=== PATIENT | female | born 1995 | race Caucasian/White ===

== ENCOUNTER 2017-03-15 21:00 | Inpatient (IN) | payer OTHER, SELFPAY ==
[2017-03-15] MEDS ORDERED: BRETHINE 1 MG/ML SQ PRN (21:09)
[2017-03-15] MEDS ORDERED: Cervidil 10 MG VAG SCH (22:00)
[2017-03-15 22:20] LABS: BASOPHIL % 0.2 % (0.0-0.4); Eosinophil % 0.5 % (0.00-5.0); Granulocytes % 71.9 % (36.0-66.0); Lymphocytes % 20.5 % (24.0-44.0); Mean Cell Volume 77.6 fl (78-100); Mean Platelet Volume 10.2 fl (6-9.5); Monocytes % 6.9 % (0.0-12.0); Platelet Count 326 K/mm3 (150-450); Red Blood Count 3.92 M/mm3 (4.1-5.4); Red Cell Distribution Width 15.3 % (11.5-14.0)
[2017-03-15 22:30] LABS: Mean Corpuscular Hemoglobin 24.4 pg (26-32)
[2017-03-15] MEDS ORDERED: TYLENOL EXTRA STRENGTH 500 MG PO PRN (23:57)
[2017-03-16] MEDS ORDERED: PITOCIN 30 UNITS/ LR 500 ML 500 ML IV SCH ×2 (05:30→06:00)
[2017-03-16] MEDS: Lactated Ringers 1,000 ML IV SCH ×2 (05:56→14:22)
[2017-03-16] MEDS ORDERED: XYLOCAINE 1% HCL 20 ML MDV IJ PRN (06:00)
[2017-03-16] MEDS ORDERED: Lactated Ringers 1,000 ML IV ONE (09:39)
[2017-03-16] MEDS ORDERED: Ephedrine Sulfate 50 MG/ML IV PRN (09:39)
[2017-03-16] MEDS ORDERED: OB EPIDURAL NAROPIN/SUFENTANIL IN NACL EPIDURAL PRN (09:39)
[2017-03-16 11:24] VITALS: O2SAT 98
[2017-03-16] MEDS ORDERED: Sensorcaine 0.25% 10 ML IJ ONE ×2 (13:50→14:37)
[2017-03-16] MEDS ORDERED: Dermoplast Spray TP PRN (20:11)
[2017-03-16] MEDS ORDERED: Mylicon 80MG PO PRN (20:12)
[2017-03-16] MEDS ORDERED: TUCKS TP PRN (20:12)
[2017-03-16] MEDS ORDERED: Ambien 10 MG PO PRN (20:12)
[2017-03-16] MEDS ORDERED: Dulcolax 10 MG SUPP PR PRN (20:12)
[2017-03-16] MEDS ORDERED: CORTISONE 1% CREAM TP PRN (20:12)
[2017-03-16] MEDS ORDERED: NORCO 5/325 MG PO PRN (20:12)
[2017-03-16] MEDS ORDERED: Anucort-HC SUPPOSITORY PR PRN (20:12)
[2017-03-16] MEDS ORDERED: Zofran 4 MG/2 ML VIAL IV PRN (20:17)
[2017-03-16] MEDS: MOTRIN 400 MG PO PRN (23:30)
[2017-03-17] MEDS: MOTRIN 400 MG PO PRN ×3 (05:24→22:08)
[2017-03-17] MEDS: Colace 100 MG PO SCH ×3 (05:57→22:08)
[2017-03-17 06:03] LABS: BASOPHIL % 0.2 % (0.0-0.4); Eosinophil % 0.7 % (0.00-5.0); Granulocytes % 71.4 % (36.0-66.0); Lymphocytes % 18.7 % (24.0-44.0); Mean Cell Volume 79.2 fl (78-100); Mean Corpuscular Hemoglobin 24.4 pg (26-32); Mean Platelet Volume 10.7 fl (6-9.5); Platelet Count 237 K/mm3 (150-450); Red Blood Count 3.03 M/mm3 (4.1-5.4); Red Cell Distribution Width 15.3 % (11.5-14.0); White Blood Count 11.7 K/mm3 (4.0-10.5)
[2017-03-17] MEDS: TYLENOL EXTRA STRENGTH 500 MG PO PRN ×2 (08:54→17:34)
[2017-03-17] MEDS ORDERED: Adacel Vial IM ONE (10:00)
[2017-03-17] MEDS ORDERED: FERREX 150 PO SCH (10:00)
[2017-03-17] MEDS: FEOSOL 325 MG PO SCH ×2 (11:35→23:05)
[2017-03-18 05:32] LABS: BASOPHIL % 0.5 % (0.0-0.4); Eosinophil % 2.3 % (0.00-5.0); Granulocytes % 60.1 % (36.0-66.0); Lymphocytes % 28.9 % (24.0-44.0); Mean Cell Volume 80.8 fl (78-100); Mean Corpuscular Hemoglobin 24.3 pg (26-32); Mean Platelet Volume 10.3 fl (6-9.5); Monocytes % 8.2 % (0.0-12.0); Platelet Count 253 K/mm3 (150-450); Red Blood Count 2.91 M/mm3 (4.1-5.4); Red Cell Distribution Width 15.3 % (11.5-14.0); White Blood Count 10.5 K/mm3 (4.0-10.5)
[2017-03-18] MEDS: FEOSOL 325 MG PO SCH ×2 (09:14→19:46)
[2017-03-18] MEDS: MOTRIN 400 MG PO PRN ×2 (09:15→19:45)
[2017-03-18] MEDS: Colace 100 MG PO SCH ×2 (09:15→19:45)
[2017-03-18] MEDS: TYLENOL EXTRA STRENGTH 500 MG PO PRN (13:25)
[2017-03-18 21:31] VITALS: BP 111/52; PULSE 90
== END 2017-03-18 20:50 | disposition home or self-care (01) | DRG 775 ==
LOC: OB 21:00 → UNDOADMOB 21:00 → OBSVTOIN 03-16 07:10
PROVIDERS: ADMIT Family Medicine; ATTEND Family Medicine
PROC: 10D07Z6 Extraction of Products of Conception, Vacuum, Via Natural or Artificial Opening (ICD-10-PCS; principal; 2017-03-16)
DX: O80 Encounter for full-term uncomplicated delivery (principal); Z3A.39 39 weeks gestation of pregnancy; Z37.0 Single live birth
CPT/HCPCS: 01967; 36415; 80307; 85025; 90471; 90715; G0378; J2405; J2590; J2795; A9270-GY

== ENCOUNTER 2024-11-30 03:35 | Emergency (ER) | payer OTHER ==
[2024-11-30 03:51] VITALS: RESP 16; TEMP 98
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
[2024-11-30] MEDS ORDERED: CLEOCIN 150 MG CAPSULE ONE (04:04)
[2024-11-30] MEDS: CLEOCIN 150 MG CAPSULE PO ONE (04:04)
[2024-11-30 04:22] VITALS: BP 106/89; PULSE 80; O2SAT 97
== END 2024-11-30 04:37 | disposition home or self-care (01) ==
LOC: ED 03:35
DX: L03.113 Cellulitis of right upper limb (principal); T23.052A Burn of unspecified degree of left palm, initial encounter; X15.0XXA Contact with hot stove (kitchen), initial encounter; Z72.0 Tobacco use; Z79.899 Other long term (current) drug therapy
CPT/HCPCS: 99281; 99283; A9270-GY